=== PATIENT | male | born 1980 | race American Indian/Alaskan Native ===

== ENCOUNTER 2018-05-10 10:14 | Emergency (ER) | payer SELFPAY ==
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
[2018-05-10] MEDS ORDERED: BOOSTRIX IM ONE (10:33)
[2018-05-10] MEDS ORDERED: NACL 0.9% 1000 ML 1,000 ML IV ONE (10:33)
[2018-05-10] MEDS ORDERED: ANCEF/NS 1 GM/50 ML 1 GM/50 ML BAG IV ONE (10:34)
[2018-05-10 10:41] LABS: Basophils # (Auto) 0.1 K/mm3 (0.0-0.1); Basophils % (Auto) 1.3 % (0.0-1.8); Eosinophils % (Auto) 0.3 % (0.0-4.3); Hematocrit 48.3 % (35.5-45.6); Hemoglobin 16.9 gm/dl (11.8-15.2); Lymphocytes # (Auto) 1.4 K/mm3 (1.2-5.4); Lymphocytes % (Auto) 19.9 % (13.4-35.0); Mean Corpuscular HGB Conc 35 % (32-34); Mean Corpuscular Hemoglobin 33 pg (28-32); Mean Corpuscular Volume 94 fl (84-94); Monocytes % (Auto) 13.4 % (0.0-7.3); Platelet Count 292 K/mm3 (140-440); Red Blood Count 5.15 M/mm3 (3.65-5.03)
[2018-05-10 10:55] LABS: INR 0.94 (0.87-1.13)
[2018-05-10 10:56] LABS: Partial Thromboplastin Time 25.2 Sec. (24.2-36.6)
[2018-05-10 10:59] LABS: Alanine Aminotransferase 23 units/L (7-56); Albumin 4.7 g/dL (3.9-5); BUN/Creatinine Ratio 13; Blood Urea Nitrogen 15 mg/dL (9-20); Calcium 8.9 mg/dL (8.4-10.2); Hemolysis Index 12
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
[2018-05-10 12:11] VITALS: BP 167/101
== END 2018-05-10 12:24 | disposition other institution (70) ==
LOC: ED 10:14 → EDBD 10:14 → ED 12:24
DX: S01.81XA Laceration without foreign body of other part of head, initial encounter (principal); S31.112A Laceration without foreign body of abdominal wall, epigastric region without penetration into peritoneal cavity, initial encounter; Y04.0XXA Assault by unarmed brawl or fight, initial encounter; Y93.89 Activity, other specified; Y92.89 Other specified places as the place of occurrence of the external cause; Y99.8 Other external cause status
CPT/HCPCS: 36415; 71045; 80053; 85025; 85610; 85730; 86850; 86900; 86901; 90471; 90715; 96365; 99291; G0480; J0690; J7030; 80320